=== PATIENT | male | born 1975 | race Caucasian/White ===

== ENCOUNTER 2017-01-27 15:25 | Emergency (ER) | payer BC ==
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
[2017-01-27] MEDS ORDERED: Diph,Pert(Acell),Tet Vac 0.5 ML SYR IM ONE (17:21)
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
== END 2017-01-27 17:39 | disposition home or self-care (01) ==
LOC: ER 15:25
DX: S00.83XA Contusion of other part of head, initial encounter (principal); S05.11XA Contusion of eyeball and orbital tissues, right eye, initial encounter; S40.211A Abrasion of right shoulder, initial encounter; S00.212A Abrasion of left eyelid and periocular area, initial encounter; S00.81XA Abrasion of other part of head, initial encounter; M54.2 Cervicalgia; V19.3XXA Pedal cyclist (driver) (passenger) injured in unspecified nontraffic accident, initial encounter
CPT/HCPCS: 70450; 70486; 72125; 90715; 96372; 99283; 99284